=== PATIENT | female | born 1980 | race Two or more races ===

== ENCOUNTER 2017-09-14 21:47 | Emergency (ER) | payer OTHER ==
[~2017-09-14] VITALS: Ht 175.3 cm; Wt 59.0 kg
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
[2017-09-14 22:34] VITALS: BP 122/69
== END 2017-09-14 22:36 | disposition home or self-care (01) ==
LOC: ER 21:47
DX: M25.511 Pain in right shoulder (principal); M54.5 Low back pain; V29.50XA Motorcycle passenger injured in collision with unspecified motor vehicles in traffic accident, initial encounter; Y93.89 Activity, other specified; Y92.410 Unspecified street and highway as the place of occurrence of the external cause; Y99.8 Other external cause status
CPT/HCPCS: 99283; A4606; Z7610

== ENCOUNTER 2021-05-14 05:35 | Emergency (ER) | payer BC ==
[~2021-05-14] VITALS: Ht 175.3 cm; Wt 77.1 kg
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
--- NOTE | 2021-05-14 06:48 | NUR ---
PRODUCTION EXPERT AT PT'S BEDSIDE
[2021-05-14] MEDS ORDERED: IBUP-1957 PO (07:46)
--- NOTE | 2021-05-14 07:55 | NUR ---
Patient discharged to home in stable condition. Written and verbal after care instructions given. Patient verbalizes understanding of instruction.
[2021-05-14 09:22] VITALS: BP 128/76
== END 2021-05-14 09:22 | disposition home or self-care (01) ==
LOC: ER 05:35
DX: S92.522A Displaced fracture of middle phalanx of left lesser toe(s), initial encounter for closed fracture (principal); W10.8XXA Fall (on) (from) other stairs and steps, initial encounter; Y93.89 Activity, other specified; Y92.89 Other specified places as the place of occurrence of the external cause; Y99.8 Other external cause status
CPT/HCPCS: 73660-TC